=== PATIENT | male | born 1980 | race American Indian/Alaskan Native ===

== ENCOUNTER 2017-12-05 19:43 | Emergency (ER) | payer OTHER ==
--- NOTE | 2017-12-05 20:18 | EDPHY ---
H & P Stated Complaint: TINGLING HANDS/FEET OFF/ON X1 WK,L SHOULDER, CHILLS , STARTED NEW VITAMINS Time Seen by Provider: 12/05/17 20:02 HPI/ROS: CHIEF COMPLAINT: Intermittent paresthesias HISTORY OF PRESENT ILLNESS: 37-year-old male generally healthy in the ER via private vehicle with his complaining of 2 weeks of recurrent bilateral upper and lower extremity paresthesias. Currently asymptomatic. He also notes increase in his anxiety. He has not been sleeping well. Today he ran 3 miles with no problems, no chest pain or dyspnea no palpitations, did not need to cease activity prematurely due to chest pain or dyspnea out of proportion to activity. No definitive pattern of symptomatology. No back pain. No neck pain. No trauma. No weakness. No gait instability. No slurred speech. No headache. No visual disturbance. No diplopia. PRIMARY CARE PROVIDER:Dr. Jeffrey Gallardo REVIEW OF SYSTEMS: A ten point review of systems was performed and is negative with the exception of the items mentioned in the HPI PAST MEDICAL & SURGICAL HISTORY: No pertinent medical or surgical history SOCIAL HISTORY:Nonsmoker. PHYSICAL EXAM (Prior to examination, patient consented to physical exam, hands were washed and my usual and customary physical exam procedures followed) 1) GENERAL: Well-developed, well-nourished, alert and oriented. Appears to be in no acute distress. Smiling. Laughing . appears well. 2) HEAD: Normocephalic, atraumatic 3) HEENT: Pupils equal, round, reactive to light bilaterally. Sclera anicteric. Nasopharynx, oropharynx, clear, no lesions. Ears bilaterally with normal tympanic membranes. 4) NECK: Full range of motion, no meningeal signs. No carotid bruit 5) LUNGS: Clear auscultation bilaterally, no wheezes, no rhonchi, no retractions. 6) HEART: Regular rate and rhythm, no murmur, no heave, no gallop. 7) ABDOMEN: No guarding, no rebound, no focal tenderness, negative McBurney's, negative Rivers's, negative Rovsing's, negative peritoneal sign, 8) MUSCULOSKELETAL: Moving all extremities, no focal areas of tenderness, no obvious trauma. No peripheral edema or discoloration. 9) BACK: No CVA tenderness, no midline vertebral tenderness, no fluctuance, no step-off, no obvious trauma, no visual or palpable abnormality. 10) SKIN: No rash, no petechiae. 11) Psychiatric: Patient is oriented X 3, there is no agitation. 12) NEURO: Awake, alert, and oriented to person, place and time. Answers questions appropriately. There were no obvious focal neurologic abnormalities. No cerebellar dysfunction. Cranial nerves 2 through to 12 intact. Normal steady gait. Upper and lower extremities bilaterally with strength 5 / 5, reflexes 2+. DIFFERENTIAL DIAGNOSIS: In no particular order including but not limited to spinal pathology, Guillain-[place], anxiety - Personal History Current Tetanus/Diphtheria Vaccine: Yes Tetanus Vaccine Date: 2016 - Medical/Surgical History Hx Asthma: No Hx Chronic Respiratory Disease: No Hx Diabetes: No Hx Cardiac Disease: No Hx Renal Disease: No Hx Cirrhosis: No Hx Alcoholism: No Hx HIV/AIDS: No Hx Splenectomy or Spleen Trauma: No Other PMH: BLADDER CAUTERIZATION, TYPHOID SYMPTOMS IN [place], ?KIDNEY STONES, JAUNDICE - Social History Smoking Status: Former smoker Constitutional: Initial Vital Signs Temperature (C) 36.8 C 12/05/17 19:49 Heart Rate 63 12/05/17 19:49 Respiratory Rate 20 12/05/17 19:49 Blood Pressure 146/94 H 12/05/17 19:49 O2 Sat (%) 99 12/05/17 19:49 O2 Delivery Mode Room Air Allergies/Adverse Reactions: No Known Allergies Allergy (Unverified 12/05/17 19:47) Home Medications: Medication Instructions Recorded Multivitamin (*) 12/05/17 Vitamin D3 12/05/17 Medical Decision Making ED Course/Re-evaluation: 8:17 p.m.: This patient currently appears well and is asymptomatic. He has a nonfocal neurologic exam. I do not think that imaging studies are indicated at this time. I will obtain laboratory studies including chemistries including magnesium and calcium and re-evaluate. Care of patient under supervision of secondary supervising physician Dr Kitchen. 9:40 p.m.: Re-evaluation. Discussed with the patient his laboratory results. TSH is pending. Re-evaluation, he remains with a nonfocal neurologic exam. Discussed multiple possible etiologies for his recurrent, intermittent bilateral upper and lower extremity route paresthesias. Do not think that imaging is indicated at this time. I have recommend follow up with primary care provider Dr. Jeffrey Gallardo also provided him the name on-call Neurology Dr. Oswald Hart for follow-up. He has no weakness. He has been given usual and customary neurologic precautions instructions. He feels comfortable being discharged. - Data Points Laboratory Results: Laboratory Results 12/05/17 20:15 12/05/17 20:15 12/05/17 12/05/17 20:15 20:15 WBC 5.84 10^3/uL 10^3/uL (3.80-9.50) RBC 5.16 10^6/uL 10^6/uL (4.40-6.38) Hgb 15.8 g/dL g/dL (13.7-17.5) Hct 44.6 % % (40.0-51.0) MCV 86.4 fL fL (81.5-99.8) MCH 30.6 pg pg (27.9-34.1) MCHC 35.4 g/dL g/dL (32.4-36.7) RDW 13.2 % % (11.5-15.2) Plt Count 236 10^3/uL 10^3/uL (150-400) MPV 11.3 fL fL (8.7-11.7) Neut % (Auto) 78.0 % H % (39.3-74.2) Lymph % (Auto) 15.8 % % (15.0-45.0) [place] % (Auto) 5.3 % % (4.5-13.0) Eos % (Auto) 0.3 % L % (0.6-7.6) Baso % (Auto) 0.3 % % (0.3-1.7) Nucleat RBC Rel Count 0.0 % % (0.0-0.2) Absolute Neuts (auto) 4.55 10^3/uL 10^3/uL (1.70-6.50) Absolute Lymphs (auto) 0.92 10^3/uL L 10^3/uL (1.00-3.00) Absolute Monos (auto) 0.31 10^3/uL 10^3/uL (0.30-0.80) Absolute Eos (auto) 0.02 10^3/uL L 10^3/uL (0.03-0.40) Absolute Basos (auto) 0.02 10^3/uL 10^3/uL (0.02-0.10) Absolute Nucleated RBC 0.00 10^3/uL 10^3/uL (0-0.01) Immature Gran % 0.3 % % (0.0-1.1) Immature Gran # 0.02 10^3/uL 10^3/uL (0.00-0.10) Sodium 143 mEq/L mEq/L (135-145) Potassium 4.7 mEq/L mEq/L (3.5-5.2) Chloride 105 mEq/L mEq/L (97-110) Carbon Dioxide 23 mEq/l mEq/l (22-31) Anion Gap 15 mEq/L mEq/L (8-16) BUN 13 mg/dL mg/dL (7-23) Creatinine 0.7 mg/dL mg/dL (0.7-1.3) Estimated GFR > 60 Glucose 90 mg/dL mg/dL (70-100) Calcium 9.8 mg/dL mg/dL (8.5-10.4) Magnesium 2.1 mg/dL mg/dL (1.6-2.3) TSH 1.830 uIU/mL uIU/mL (0.465-4.680) Specimen Hemolysis 159 Departure - Departure Disposition: Home, Routine, Self-Care Clinical Impression: Paresthesia Condition: Good Instructions: Paresthesia (ED) Additional Instructions: Return to the ER if you develop headaches, vision changes, weakness, problems walking or any other symptoms that concern you. Referrals: JEFFREY GALLARDO [Primary Care Provider] - 2-3 days, call for appt. Oswald Hart MD [Medical Doctor] - 5-7 days, call for appt. (Dr. Oswald Hart is a neurologist)
[2017-12-05 21:01] LABS: PLATELET COUNT 236 10^3/uL (150-400)
[2017-12-05 22:11] VITALS: BP 130/91
== END 2017-12-05 22:10 | disposition home or self-care (01) ==
DX: R20.2 Paresthesia of skin (principal); Z87.891 Personal history of nicotine dependence

== ENCOUNTER 2018-05-20 11:42 | Emergency (ER) | payer OTHER ==
--- NOTE | 2018-05-20 12:52 | EDPHY ---
H & P Stated Complaint: RLQ abd pain - Personal History Current Tetanus/Diphtheria Vaccine: Yes Current Tetanus Diphtheria and Acellular Pertussis (TDAP): Yes Tetanus Vaccine Date: 2016 - Medical/Surgical History Hx Asthma: No Hx Chronic Respiratory Disease: No Hx Diabetes: No Hx Cardiac Disease: No Hx Renal Disease: No Hx Cirrhosis: No Hx Alcoholism: No Hx HIV/AIDS: No Hx Splenectomy or Spleen Trauma: No Other PMH: BLADDER CAUTERIZATION, TYPHOID SYMPTOMS IN [place], ?KIDNEY STONES, JAUNDICE - Social History Smoking Status: Former smoker Time Seen by Provider: 05/20/18 12:41 HPI/ROS: CHIEF COMPLAINT: Right lower quadrant pain since this morning HISTORY OF PRESENT ILLNESS: 37-year-old male with no history of abdominal surgeries complaining of the right lower quadrant right inguinal pain since this morning. He states that the pain has by and large resolved now since waiting in the ER he felt the easing up of the pain in this area although notes continued pain. She describes and exquisite level of pain when it was present. No trauma. No nausea or vomiting. No urinary abnormality. Last bowel movement this morning was normal with no melena or hematochezia. PRIMARY CARE PROVIDER: REVIEW OF SYSTEMS: 10 systems reviewed and negative with the exception of the elements mentioned in the history of present illness PAST MEDICAL & SURGICAL HISTORY: No history of abdominal surgery SOCIAL HISTORY: Nonsmoker. PHYSICAL EXAM (Prior to examination, patient consented to physical exam, hands were washed and my usual and customary physical exam procedures followed) 1) GENERAL: Well-developed, well-nourished, alert and oriented. Appears to be in no acute distress. 2) HEAD: Normocephalic, atraumatic 3) HEENT: Pupils equal, round, reactive to light bilaterally. Sclera anicteric. Nasopharynx, oropharynx, clear, no lesions. MoistDry mucous membranes. Ears bilaterally with normal tympanic membranes. 4) NECK: Full range of motion, no meningeal signs. 5) LUNGS: Clear auscultation bilaterally, no wheezes, no rhonchi, no retractions. 6) HEART: Regular rate and rhythm, no murmur, no heave, no gallop. 7) ABDOMEN: No guarding, tender to palpation right lower quadrant negative Rivers's, negative Rovsing's, negative peritoneal sign, 8) MUSCULOSKELETAL: Moving all extremities, no focal areas of tenderness, no obvious trauma. No peripheral edema or discoloration. 9) BACK: No CVA tenderness, no midline vertebral tenderness, no fluctuance, no step-off, no obvious trauma, no visual or palpable abnormality. 10) SKIN: No rash, no petechiae. 11) : Normal male external genitalia bilateral testicles nontender, non high- riding, bilateral cremasteric reflex present and brisk. No perineal pain. No inguinal mass or pain.. DIFFERENTIAL DIAGNOSIS: [ My differential diagnosis includes, but is not limited to, acute appendicitis, acute cholecystitis, bowel obstruction, acute pancreatitis, testicular torsion, gastritis and urinary tract infection. The patient understands that this diagnosis is provisional and can never be 100% accurate. This is a partial list of diagnoses considered. These considerations are based on history, physical exam, past history and reassessment. (Anson Ramsay) Constitutional: Initial Vital Signs Temperature (C) 36.9 C 05/20/18 12:00 Heart Rate 59 L 05/20/18 12:00 Respiratory Rate 16 05/20/18 12:00 Blood Pressure 140/88 H 05/20/18 12:00 O2 Sat (%) 98 05/20/18 12:00 O2 Delivery Mode Room Air Allergies/Adverse Reactions: No Known Allergies Allergy (Verified 05/20/18 12:05) Home Medications: Medication Instructions Recorded Multivitamin (*) 12/05/17 Vitamin D3 12/05/17 Medical Decision Making - Diagnostics Imaging Results: Images reviewed myself (Anson Ramsay) ED Course/Re-evaluation: 12:56 p.m.: I saw this patient independently based on established practice protocols. Care of patient under supervision of secondary supervising physician Dr Reyes with whom I discussed case. Patient is focally tender to palpation right lower quadrant. Will obtain diagnostic studies. 3:00 p.m.: Re-evaluation. He is resting comfortably, asymptomatic. Re- examined abdomen which is soft no guarding no rebound. Patient I discussed his laboratory and diagnostic results including CT imaging showing normal appearing appendix, scattered diverticula with no evidence of diverticulitis. This time I do not think that General surgery consultation or admission is indicated. Doubt testicular or genitalia pathology. Urinalysis is negative. Testicles with an unremarkable examination. I have provided my usual and customary abdominal precautions instructions. The specific etiology of his abdominal pain is incompletely clear at this time however I think the patient can be discharged home safely at this time. All questions and concerns addressed by myself. (Anson Ramsay) - Data Points Laboratory Results: Laboratory Results 05/20/18 12:46 05/20/18 12:46 Departure - Departure Disposition: Home, Routine, Self-Care Clinical Impression: Abdominal pain Condition: Good Instructions: Acute Abdominal Pain (ED) Additional Instructions: Seek immediate medical attention if you develop new or worsening symptoms, if you develop fevers, chills, inability to tolerate oral intake or any other symptoms that concerns you. Referrals: MARTINE TREJO [Primary Care Provider] - 1-2 days without fail
[2018-05-20 13:16] LABS: PLATELET COUNT 223 10^3/uL (150-400)
[2018-05-20] MEDS ORDERED: IOPAMIDOL (ISOVUE-300) 100 ML BTL ONE (13:41)
[2018-05-20 15:22] VITALS: BP 123/90
== END 2018-05-20 15:22 | disposition home or self-care (01) ==
DX: R10.31 Right lower quadrant pain (principal)
CPT/HCPCS: Q9967